=== PATIENT | male | born 1975 | race Caucasian/White ===

== ENCOUNTER 2017-04-07 11:30 | Emergency (ER) | payer OTHER ==
[2017-04-07 11:46] VITALS: TEMP 98.6; BMI 23.6
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
[2017-04-07 14:52] VITALS: BP 127/91; PULSE 70; RESP 18; O2SAT 99
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
== END 2017-04-07 14:51 | disposition home or self-care (01) ==
LOC: ED 11:30
DX: S16.1XXA Strain of muscle, fascia and tendon at neck level, initial encounter (principal); S09.90XA Unspecified injury of head, initial encounter; V49.49XA Driver injured in collision with other motor vehicles in traffic accident, initial encounter; Y92.411 Interstate highway as the place of occurrence of the external cause; M25.561 Pain in right knee; M25.562 Pain in left knee
CPT/HCPCS: 70450; 71020; 72125; 73562; 96372; 99284; J1885